=== PATIENT | male | born 1955 | race Caucasian/White ===

== ENCOUNTER 2023-10-26 03:14 | Inpatient (IN) ==
[2023-10-26 04:18] LABS: Appearance Urine Clear (Clear); Bilirubin Urine Negative (Negative); Blood Urine Negative (Negative); Color Urine Yellow; Glucose Urine UA Negative (Negative); Ketones Urine Negative (Negative); Leukocyte Esterase Urine Negative (Negative); Nitrite Urine Negative (Negative); Protein Urine Negative (Negative); Specific Gravity Urine 1.013 (1.000-1.030); Urobilinogen Urine Negative (Negative); pH Urine 5.5 (4.5-7.5)
--- NOTE | 2023-10-26 05:00 | Emergency Department Note ---
Impression & Plan Postobstructive diuresis, Acute retention of urine, Prostatitis ED Provider Note CHIEF COMPLAINT: "can't pee" x 2 days HISTORY OF PRESENT ILLNESS: This 68-year-old male patient presents to the emergency department via private vehicle for evaluation of urinary retention. Patient states the symptoms started 2 days ago. He was seen by urgent care and diagnosed with a urinary tract infection. He was started on Keflex twice daily. He states for the past 2 days, he has only had 1 episode where he had a somewhat decent stream of urine. He has been drinking a lot of fluids and tonight developed some distention and abdominal pain with pain with attempts at urination. The patient denies any blood in the urine. He denies any flank or back pain. He denies any nausea or vomiting. No diarrhea or constipation. No history of similar symptoms or need for a urinary catheter. REVIEW OF SYSTEMS: A 6 system review of systems was performed with positives and pertinent negatives listed in the history of present illness. All other systems were reviewed and are negative. ALLERGIES: NKDA PHYSICAL EXAM: VITALS: Vitals are noted on the nurse's note and reviewed by myself. Vital signs stable. GENERAL: This is a 68 year old male, in no acute distress, nondiaphoretic, well- developed well-nourished. SKIN: The skin was without rashes, erythema, edema, or bruising. There is no tenting of the skin. Capillary refill less than 2 seconds. HEAD: Normocephalic atraumatic. EYES: Conjunctivae without injection, sclerae without icterus. NECK: No lymphadenopathy. HEART: Regular rate and rhythm without murmurs gallops or rubs. LUNGS: Clear to auscultation bilaterally without wheezes, rales or rhonchi. No retractions or accessory muscle use. ABDOMEN: Positive bowel sounds x 4. Distended abdomen with suprapubic tenderness to palpation. Soft, nontender, without masses or organomegaly. No guarding or rebound tenderness. MUSCULOSKELETAL: No muscle atrophy, erythema, or edema noted. Full range of motion without joint tenderness in all extremities. No tenderness to palpation. Normal gait. Strength 5/5 throughout. NEURO: Patient was alert and oriented to person place and time. No focal neurological deficits. EMERGENCY DEPARTMENT COURSE: The patient was seen and evaluated as above. Patient's presentation is concerning for urinary retention for 2 days. He has not had a good void in greater than 48 hours he does have known prostate enlargement. He is on chronic Flomax for this. Bladder scan was completed and concerning for about 1000 cc of fluid within the bladder. Verbal consent was obtained and a Negrete catheter was placed. After placement, this drained approximately 1400 cc of urine. Urinalysis was negative for evidence of bladder infection Initial labs were checked. [id number] creatinine was 1.1. Patient was monitored here in the emergency department for about 2 hours. He did drain almost 600 cc of urine through the Negrete catheter into the bag in about 2 hours. Given this, we were concerned for postobstructive diuresis. Did recommend admission. Patient was updated and agreeable. IV access was obtained, formal labs were drawn. I discussed case with information technology audit manager. I discussed case with the [facility] hospitalist. The patient will be admitted to their service. Please see hospitalist dictation regarding ongoing management care of this patient Case was discussed with the attending physician. I attest that I have personally reviewed the patient medication list. I attest that I have reviewed the patient's blood pressure and it was found to be elevated. Referred to PCP. GCS: 15 In the evaluation and treatment of this patient the following differential diagnoses were entertained: Urinary retention, UTI, prostatitis, nephrolithiasis, malignancy, among others The chart was completed utilizing [employer] Speech voice recognition software. Grammatical errors, random word insertions, pronoun errors, and incomplete sentences are an occasional consequence of this system due to software limitations, ambient noise, and hardware issues. Any formal questions or concerns about the content, text, or information contained within the body of this dictation should be directly addressed to the provider for clarification. Past Med/Surg History Medical History No pertinent past medical history Social History Smoking Status: Never smoker Preferred Language: Georgian Feels Safe at Home: Yes Allergies Allergies Allergy/AdvReac Type Severity Reaction Status Date / Time No Known Allergies Allergy Unverified 07/23/12 06:55 Results & Data (ED) Vital Signs Vital Signs - 24 hr 10/26/23 03:17 10/26/23 07:03 Temperature 36.4 C L Temperature Source Temporal Artery Scan Pulse Rate 94 H Pulse Rate [Finger] 63 Pulse Rhythm Regular Pulse Rhythm [Finger] Regular Pulse Strength Normal Pulse Strength [Finger] Normal Respiratory Rate 18 16 Respiratory Effort / Characteristics Non-Labored Spontaneous Non-Labored Respiratory Depth Normal Normal Respiratory Pattern Regular Regular Blood Pressure 180/93 H Blood Pressure [Left Arm] 187/93 H Blood Pressure Mean 122 Blood Pressure Mean [Left Arm] 124 Blood Pressure Position Sitting Pulse Oximetry 99 98 Oxygen Delivery Method Room Air Room Air Sepsis Recent Fever Within 48 Hours No Sepsis New/Unexplained Change in Mental Status No Sepsis Action Taken by Nursing No Action Required Laboratory Data 10/26/23 05:30 10/26/23 05:30 Lab Results 10/26/23 10/26/23 10/26/23 Range/Units 03:50 05:30 05:48 WBC 6.02 (4.8-10.8) K/ul RBC 4.73 (4.70-6.10) M/uL Hgb 14.1 (14.0-18.0) g/dl POC Hgb 13.9 L (14.0-18.0) g/dl Hct 41.9 L (42.0-52.0) % POC Hct 41 L (42-52) % MCV 88.6 (80.0-100.0) fL MCH 29.8 (25.0-34.0) pg MCHC 33.7 (32.0-36.0) g/dL RDW Std Deviation 42.1 (36.4-46.3) fL RDW Coeff of Brant 12.9 (11.5-14.5) % Plt Count 171 (130-400) K/uL MPV 9.2 L (9.4-12.4) fL Immature Gran % (Auto) 0.5 % Neut % (Auto) 66.0 % Lymph % (Auto) 24.4 % Braxton % (Auto) 7.8 % Eos % (Auto) 0.8 % Baso % (Auto) 0.5 % Neut # (Auto) 3.97 (1.40-6.50) K/uL Lymph # (Auto) 1.47 (1.20-3.40) K/uL Braxton # (Auto) 0.47 (0.11-0.59) K/uL Eos # (Auto) 0.05 (0.00-0.50) K/uL Baso # (Auto) 0.03 (0.00-0.20) K/uL Immature Gran # (Auto) 0.03 (0.01-0.20) K/uL POC Sodium 141 (135-144) mmol/L Sodium 139 (136-145) mmol/L POC Potassium 4.1 (3.3-5.0) mmol/L Potassium 4.1 (3.5-5.1) mmol/L POC Chloride 104 (101-112) mmol/L Chloride 108 H (98-107) mmol/L Carbon Dioxide 28 (21-32) mmol/L POC Total CO2 28 (24-31) mmol/L Anion Gap 3 (3-11) POC Anion Gap 14.0 L (16-25) mmol/L POC BUN 13 (7-18) mg/dl BUN 13 (6-23) mg/dl Creatinine 0.99 (0.6-1.4) mg/dl POC Creatinine 1.1 (0.6-1.3) mg/dl Est Cr Clr Drug Dosing 83.0 ml/min Est GFR ( Amer) 89.1 ml/min Est GFR (Non-Af Amer) 76.8 ml/min BUN/Creatinine Ratio 13.1 (10-20) Glucose 95 (70-99(Fasting)) mg/dl POC Glucose (other) 96 (70-99) mg/dl Calcium 10.2 (8.6-10.3) mg/dl POC Ioniz Calcium Edgar 1.40 H (1.12-1.32) mmol/l Magnesium 1.9 (1.7-2.4) mg/dl Total Bilirubin 0.6 (0.2-1.0) mg/dl AST 14 (13-39) U/L ALT 12 (7-52) U/L Alkaline Phosphatase 59 (34-104) U/L Total Protein 6.4 (6.0-8.3) gm/dl Albumin 4.1 (3.4-5.0) gm/dl Globulin 2.3 L (2.5-4.0) gm/dl Albumin/Globulin Ratio 1.8 (0.9-2) Urine Color Yellow Urine Appearance Clear (Clear) Urine pH 5.5 (4.5-7.5) Ur Specific [place] 1.013 (1.000-1.030) Urine Protein Negative (Negative) Urine Glucose (UA) Negative (Negative) Urine Ketones Negative (Negative) Urine Blood Negative (Negative) Urine Nitrite Negative (Negative) Urine Bilirubin Negative (Negative) Urine Urobilinogen Negative (Negative) Ur Leukocyte Esterase Negative (Negative) 10/26/23 Range/Units 06:07 WBC (4.8-10.8) K/ul RBC (4.70-6.10) M/uL Hgb (14.0-18.0) g/dl POC Hgb 13.6 L (14.0-18.0) g/dl Hct (42.0-52.0) % POC Hct 40 L (42-52) % MCV (80.0-100.0) fL MCH (25.0-34.0) pg MCHC (32.0-36.0) g/dL RDW Std Deviation (36.4-46.3) fL RDW Coeff of Brant (11.5-14.5) % Plt Count (130-400) K/uL MPV (9.4-12.4) fL Immature Gran % (Auto) % Neut % (Auto) % Lymph % (Auto) % Braxton % (Auto) % Eos % (Auto) % Baso % (Auto) % Neut # (Auto) (1.40-6.50) K/uL Lymph # (Auto) (1.20-3.40) K/uL Braxton # (Auto) (0.11-0.59) K/uL Eos # (Auto) (0.00-0.50) K/uL Baso # (Auto) (0.00-0.20) K/uL Immature Gran # (Auto) (0.01-0.20) K/uL POC Sodium 141 (135-144) mmol/L Sodium (136-145) mmol/L POC Potassium 4.1 (3.3-5.0) mmol/L Potassium (3.5-5.1) mmol/L POC Chloride 105 (101-112) mmol/L Chloride (98-107) mmol/L Carbon Dioxide (21-32) mmol/L POC Total CO2 26 (24-31) mmol/L Anion Gap (3-11) POC Anion Gap 16.0 (16-25) mmol/L POC BUN 13 (7-18) mg/dl BUN (6-23) mg/dl Creatinine (0.6-1.4) mg/dl POC Creatinine 1.1 (0.6-1.3) mg/dl Est Cr Clr Drug Dosing ml/min Est GFR ( Amer) ml/min Est GFR (Non-Af Amer) ml/min BUN/Creatinine Ratio (10-20) Glucose (70-99(Fasting)) mg/dl POC Glucose (other) 94 (70-99) mg/dl Calcium (8.6-10.3) mg/dl POC Ioniz Calcium Edgar 1.34 H (1.12-1.32) mmol/l Magnesium (1.7-2.4) mg/dl Total Bilirubin (0.2-1.0) mg/dl AST (13-39) U/L ALT (7-52) U/L Alkaline Phosphatase (34-104) U/L Total Protein (6.0-8.3) gm/dl Albumin (3.4-5.0) gm/dl Globulin (2.5-4.0) gm/dl Albumin/Globulin Ratio (0.9-2) Urine Color Urine Appearance (Clear) Urine pH (4.5-7.5) Ur Specific [place] (1.000-1.030) Urine Protein (Negative) Urine Glucose (UA) (Negative) Urine Ketones (Negative) Urine Blood (Negative) Urine Nitrite (Negative) Urine Bilirubin (Negative) Urine Urobilinogen (Negative) Ur Leukocyte Esterase (Negative) Discharge Plan Visit Data Chief Complaint: Urinary Symptoms Stated Complaint: PROBLEMS URINATING ED Provider: Sadnro Avilez ED Midlevel Provider: Jenn Briones Discharge Problem: Postobstructive diuresis, Acute retention of urine, Prostatitis Patient Disposition: Admitted As Inpatient Condition: Good Forms Stand Alone Forms: My [facility], Important Visit Information Referrals Referrals: Kristin Bush DO [Primary Care Provider] - Salomon Arellano MD [Physician] -
[2023-10-26 06:11] LABS: iSTAT Creatinine 1.1 mg/dl (0.6-1.3); iSTAT Hemoglobin 13.9 g/dl (14.0-18.0); iSTAT Ionized Calcium 1.4 mmol/l (1.12-1.32); iSTAT Potassium 4.1 mmol/L (3.3-5.0)
[2023-10-26 06:26] LABS: iSTAT Creatinine 1.1 mg/dl (0.6-1.3); iSTAT Hemoglobin 13.6 g/dl (14.0-18.0); iSTAT Ionized Calcium 1.34 mmol/l (1.12-1.32); iSTAT Potassium 4.1 mmol/L (3.3-5.0)
[2023-10-26 07:02] LABS: Basophils # (auto) 0.03 K/uL (0.00-0.20); Basophils % (auto) 0.5 %; Eosinophils # (auto) 0.05 K/uL (0.00-0.50); Eosinophils % (auto) 0.8 %; Hematocrit (blood only) 41.9 % (42.0-52.0); Hemoglobin 14.1 g/dl (14.0-18.0); Immature Granulocytes # (auto) 0.03 K/uL (0.01-0.20); Immature Granulocytes % (auto) 0.5 %; Lymphocytes # (auto) 1.47 K/uL (1.20-3.40); Lymphocytes % (auto) 24.4 %; Mean Corpuscular Hemoglobin 29.8 pg (25.0-34.0); Mean Corpuscular Hgb Conc 33.7 g/dL (32.0-36.0); Mean Corpuscular Volume 88.6 fL (80.0-100.0); Mean Platelet Volume 9.2 fL (9.4-12.4); Monocytes # (auto) 0.47 K/uL (0.11-0.59); Monocytes % (auto) 7.8 %; Neutrophils # (auto) 3.97 K/uL (1.40-6.50); Platelet Count 171 K/uL (130-400); RDW Coefficient of Variation 12.9 % (11.5-14.5); RDW Standard Deviation 42.1 fL (36.4-46.3); Red Blood Count 4.73 M/uL (4.70-6.10); White Blood Count 6.02 K/ul (4.8-10.8)
[2023-10-26 07:09] LABS: Albumin Globulin Ratio 1.8 (0.9-2); Albumin Level 4.1 gm/dl (3.4-5.0); BUN Creatinine Ratio 13.1 (10-20); Bilirubin,Total 0.6 mg/dl (0.2-1.0); Calcium 10.2 mg/dl (8.6-10.3); Est GFR (African American) 89.1 ml/min; Est GFR (Non-African American) 76.8 ml/min; Globulin 2.3 gm/dl (2.5-4.0); Magnesium 1.9 mg/dl (1.7-2.4); Potassium 4.1 mmol/L (3.5-5.1); Total Protein 6.4 gm/dl (6.0-8.3)
[2023-10-26] MEDS ORDERED: ALUMINUM/MAGNESIUM SUSP 30 ML UDC PO PRN (09:48)
[2023-10-26] MEDS ORDERED: ACETAMINOPHEN 325 MG TAB PO PRN (09:48)
[2023-10-26] MEDS ORDERED: ONDANSETRON INJ 2 MG/ML 2 ML VIAL IV PRN (09:48)
[2023-10-26] MEDS ORDERED: POLYETHYLENE (MIRALAX) 17 GM PACK PO PRN (09:48)
[2023-10-26] MEDS ORDERED: MELATONIN 3 MG TAB PO PRN (09:48)
[2023-10-26] MEDS: LACTATED RINGER'S 1,000 ML IV SCH (10:00)
[2023-10-26] MEDS ORDERED: cefTRIAXone SODIUM 1,000 MG in DEXTROSE 5 % MINI-B 50 ML IV SCH (12:30)
[2023-10-26] MEDS: cefTRIAXone SODIUM 2,000 MG in DEXTROSE 5 % MINI-B 50 ML IV SCH (13:16)
[2023-10-26] MEDS: PANTOprazole 40 MG TAB PO SCH (13:16)
[2023-10-26] MEDS: ATORVASTATIN 10 MG TAB PO SCH (13:16)
[2023-10-26] MEDS: LOSARTAN POTASSIUM 50 MG TAB PO SCH (13:16)
[2023-10-26] MEDS: CYANOCOBALAMIN (B-12) 500 MCG TABLET PO SCH (13:16)
--- NOTE | 2023-10-26 17:14 | History & Physical Report ---
Date of Service October 26, 2023 Assessment & Plan (1) Postobstructive diuresis: Plan: Hi UOP - 1500 mL from initial madrid placement then 600 mL in subsequent 2h. -IV fluids, monitor I/O and UOP -AM BMP, mag, phos -hopefully can discharge in AM (2) Acute retention of urine: Plan: Due to BPH and possibly partially treated UTI -madrid placed in ED - continue at least 7 days -follow up with his urologist Dr. Cruz -treat for presumptive UTI - ceftriaxone for now -increase flomax to 0.8 mg (3) BPH (benign prostatic hyperplasia): Plan: -increase flomax (4) Hypertension: Plan: Continue irbesartan Plan DVT ppx: SCDs, add chemoprophylaxis if prolonged hospital stay Admission and Anticipated Discharge Date Admission Date: October 26, 2023 History of Present Illness Chief Complaint: inability to urinate, lower abdominal pain Primary Care Provider: Kristin Bush, DO 68 y/o man with history of HTN and BPH on flomax, two previous prostate biopsies negative for cancer. Two days ago developed dysuria, bladder pain, inability to urinate well with dribbling. Seen in urgent care, had urinalysis, started on cephalexin - took three doses. Continued to be unable to urinate and developed severe lower abdominal pain so came to ED. Found to have acute urinary retention and madrid catheter was placed. Made 1500 mL of urine output immediately. Was observed and had 600 mL more UOP in the next two hours. Admitted for postobstructive diuresis. Currently no abdominal pain, pain resolved immediately with madrid. No fever/chills. No pain from madrid. Urine in bag is clear yellow. UA in ED was negative. Baseline symptoms from BPH are weak stream and nocturia 2-3x a night. Has a urologist Dr. Stefan Cruz with [facility] in [place]. No surgical history other than biopsies. No family Hx of prostate cancer. Home medications: atorvastatin 10 mg qd irbesartan 300 mg qd omeprazole 20 mg qd tamsulosin 0.4 mg qd B12 1000 mcg qd D3 2000 u qd keflex recently prescribed as above 500 mg bid Allergies - none, sounds like he had cough with DEVON Allergies Allergy/AdvReac Type Severity Reaction Status Date / Time No Known Allergies Allergy Unverified 07/23/12 06:55 Past Med/Surg History Medical History BPH (benign prostatic hyperplasia) Hypertension No pertinent past medical history Family History Mother Cancer gallbladder cancer Social History Smoking Status: Never smoker Second Hand Exposure: No; Do You Dip or Chew Tobacco: No; Tobacco Cessation Education Requested by Patient: No Hx Alcohol Use: Yes Alcohol type: beer and hard liquor Hx Substance Use: No Preferred Language: Persian Communication Ability: Effective Rehabilitation Services Coordinator Required: No Beliefs That Will Affect Care: None Current Living Situation: Spouse Other Information That Helps Us Care for You: No Feels Safe at Home: Yes Safety Concerns: Feels Safe At This Time Assistive Devices: Denture - Lower, Glasses and Hearing Aid - Left Review of Systems 2 Review of Systems: All systems reviewed & are unremarkable except as noted in HPI & below Physical Exam 2 Physical Exam: PHYSICAL EXAMINATION Last 24h vital signs reviewed, see documentation in flowsheet General: comfortable appearing, no distress HEENT: Normocephalic, atraumatic, pupils round and equal, sclerae anicteric, no conjunctival injection, moist mucus membranes Lungs: Normal respiratory effort. Clear to auscultation bilaterally. No RRW Heart: Regular rate and rhythm, no murmurs. No JVD Abdomen: Soft, nontender, nondistended. Bowel sounds present. : madrid catheter draining clear yellow urine Extremities: Warm, dry, well-perfused. No extremity edema. Neuro: Alert and oriented x 4, face symmetric, moves 4 extremities well Psych: Normal affect and behavior Results & Data Results & Data Vital Signs (Past 12 Hours) Vital Signs Temp Pulse Resp BP Pulse Ox O2 Del Method 10/26/23 15:05 36.6 C 62 16 174/79 H 95 Room Air 10/26/23 09:49 36.4 C L 78 16 165/87 H 95 Room Air 10/26/23 08:35 Room Air 10/26/23 08:30 36.6 C 67 20 168/87 H 97 Room Air 10/26/23 07:03 63 16 187/93 H 98 Room Air Laboratory Results 10/26/23 05:30 10/26/23 05:30 Code Status & VTE Plan VTE Prophylaxis Plan VTE Prophylaxis will be ordered: Yes PG Care Time/CCT Total # of Minutes Spent Total Time Spent with Patient: Total time spent is greater than 50% in coordination of care (as documented) at patient's floor/unit and/or counseling patient: Coding Level of Care Code 63508 INT INP/OBS CARE 2/55MIN Diagnoses Postobstructive diuresis R35.89 Acute retention of urine R33.8 BPH (benign prostatic hyperplasia) N40.0 Hypertension I10
[2023-10-26] MEDS: TAMSULOSIN HCL 0.4 MG CAP PO SCH (19:57)
[2023-10-27 07:47] LABS: BUN Creatinine Ratio 15.1 (10-20); Calcium 10.1 mg/dl (8.6-10.3); Creatinine Clr Calc Pharmacy 88.4 ml/min; Est GFR (African American) 96.1 ml/min; Est GFR (Non-African American) 82.9 ml/min; Magnesium 1.9 mg/dl (1.7-2.4); Phosphorus 2.1 mg/dl (2.5-4.9); Potassium 4.4 mmol/L (3.5-5.1)
[2023-10-27] MEDS: POT PHOSPHATE MONOBASIC W/ SOD TAB PO SCH (12:13)
--- NOTE | 2023-10-27 14:56 | Ultrasound Report ---
RENAL ULTRASOUND CLINICAL HISTORY: BPH, ?hydronephrosis COMPARISON STUDY: None. TECHNIQUE: Sonography of the kidneys and the urinary bladder was performed. FINDINGS: The right kidney measures 11.9 cm in maximal dimension and the left measures 12 cm. There i s no right hydronephrosis. There is apparent moderate dilatation of the left lower pole renal calyces and dilatation of the left renal pelvis. Negrete balloon within the bladder is present. The prostate i s enlarged although suboptimally assessed by sonography. No renal calculus or mass is identified. IMPRESSION: 1. Apparent dilatation of the left lower pole renal calyces and dilatation of the left renal pelvis. This likely reflects mild to moderate left hydronephrosis. Parapelvic cysts could appear similar. 2. No right hydronephrosis. 3. Enlarged prostate. Negrete balloon within the bladder. ACT 112: Negative or not required by law. Electronically signed by: Jean-Claude Chu M.D. 10/27/2023 2:54 PM
[2023-10-27] MEDS: amLODIPine BESYLATE 5 MG TAB PO ONE (16:46)
--- NOTE | 2023-10-27 17:19 | Hospitalist Progress Note ---
Date of Service October 27, 2023 Assessment & Plan (1) Postobstructive diuresis: Plan: Cr stable patient able to match PO intake with UOP Obstruction 2nd to BPH can d/c fluids later today BMP am (2) Acute retention of urine: Plan: 2nd BPH Urine cx from outside urgent care negative, and u/a here completely normal s/p madrid placement leave madrid in place at d/c will sent to [facility] Urology post-d/c for madrid management and trial of void, BPH management, etc renal u/s with unilateral hydronephrosis which is unusual with obstruction from BPH (should be b/l) will obtain CT a/p to get more information on the left-sided hydronephrosis (3) BPH (benign prostatic hyperplasia): Plan: Was taking 0.4mg of flomax daily pre-hospital Was increased to 0.8mg daily at time of admission Consider finasteride, but defer to outpatient providers (4) Hypertension: Plan: Uncontrolled Continue irbesartan Add norvasc 5mg daily Flomax will provide some BP control as well (5) UTI (urinary tract infection): Plan: was told at outside urgent care in [place] he had UTI I don't have his u/a from there but we did call and apparently his urine cx is neg to date u/a here completely normal had taken keflex since Monday 10/23 was switched to rocephin IV here - today is dose #2 can likely d/c all abx unless his urine cx from [facility] is + Plan /daughter updated via [employer] late this afternoon following renal u/s completion and results discussed plan of care await CT a/p and likely d/c home in am change observation status to full admission status Admission and Anticipated Discharge Date Admission Date: October 26, 2023 Subjective pt reports having had a BM earlier today with doing so he got a little hematuria in the madrid bag this cleared as the day went on denies abd pain denies back pain no fevers states he went to [facility] last weekend told he had UTI and placed on keflex follows with [facility] - wants to switch to [facility] prior to this hospitalization was getting up 2-3x's each night to void urinary frequency with small volumes of urine during the daytime poor stream had prostate bx x 2 in the past -- negative per his urologist for prostate ca Review of Systems Review of Systems: gen - no fevers or chills cv - no chest pain pulm - no dyspnea GI - no N/V Physical Exam Physical Exam: gen - NAD, looks well neck - no JVD mouth - MMM heart - RRR, s1 s2, no murmur lungs - CTA b/l abd - soft NT ND BS+ ext - no edema, pulses 2+ b/l - madrid in place; mildly erythematous urine in bag Results & Data Results & Data Vital Signs (Past 12 Hours) Vital Signs Temp Pulse Pulse Resp BP Pulse Ox O2 Del Method 10/27/23 14:54 36.6 C 67 16 171/83 H 96 Room Air 10/27/23 07:27 36.5 C 67 16 167/78 H 96 Room Air Laboratory Results Laboratory Results - last 24 hr 10/27/23 07:11 Sodium 138 Potassium 4.4 Chloride 107 Carbon Dioxide 28 Anion Gap 3 BUN 14 Creatinine 0.93 Est Cr Clr Drug Dosing 88.4 Est GFR ( Amer) 96.1 Est GFR (Non-Af Amer) 82.9 BUN/Creatinine Ratio 15.1 Glucose 96 Calcium 10.1 Phosphorus 2.1 L Magnesium 1.9 Diagnostic Findings verbal report - urine cx result from [place] [facility] from 10/23 - negative / no growth to date PG Care Time/CCT Total # of Minutes Spent Total Time Spent with Patient: Total time spent is greater than 50% in coordination of care (as documented) at patient's floor/unit and/or counseling patient: Coding Level of Care Code 96055 SUB INP/OBS CARE 3/50MIN Diagnoses Postobstructive diuresis R35.89 Acute retention of urine R33.8 BPH (benign prostatic hyperplasia) N40.0 Hypertension I10 UTI (urinary tract infection) N39.0
--- NOTE | 2023-10-27 19:44 | CT Scan Report ---
ABDOMEN AND PELVIS CT WITHOUT CONTRAST CT DOSE: 1429.99 mGy.cm HISTORY: Abnormal renal ultrasound. Possible left-sided hydronephrosis. L sided hydronephrosis; ston es? bladder pathology? TECHNIQUE: Multiaxial CT images of the abdomen and pelvis were performed without contrast. A dose lo wering technique was utilized adhering to the principles of ALARA. COMPARISON STUDY: Renal ultrasound 10/27/2023. FINDINGS: The lung bases are clear. No pneumoperitoneum. No pneumatosis. No acute fractures. A 2.1 cm sclerotic focus within the left side of the L4 vertebral body. This is indeterminate but favors a lemuel ne island. Tiny fat-containing umbilical hernia. Multiple small gallstones. No gallbladder wall thick ening. The unenhanced liver, spleen, adrenal glands, and pancreas are unremarkable. Mildly distended and debris filled stomach. No retroperitoneal lymphadenopathy. Mild calcified plaque within the duane l caliber abdominal aorta. No pelvic lymphadenopathy or pelvic free fluid. The prostate gland is enla rged measuring 7.3 cm. Mild bladder wall thickening favors chronic outlet obstruction from the enlarg ed prostate gland. A Negrete catheter appears in good position and likely accounts for the gas within t he bladder lumen. There is minimal fat stranding adjacent to the bladder. No renal or ureteral stones . Hypodensity within the left renal sinus measuring 3.8 cm. This favors a parapelvic cyst rather than hydronephrosis. However, this is difficult to assess on this noncontrast study. No right-sided hydro nephrosis. Suboptimal evaluation for bowel pathology due to the lack of intravenous and oral contrast . However, there is no definite bowel wall thickening or obstruction. Colonic diverticulosis. No evid ence for acute diverticulitis. Normal appendix. IMPRESSION: 1. Redemonstration of the 3.8 cm hypodense focus within the left renal sinus. This favors a parapelvi c cyst rather than hydronephrosis. However, this is difficult to assess on this noncontrast study. Fo llow-up CT urogram could be considered for confirmation. 2. Bladder wall thickening with adjacent fat stranding. This could be due to chronic outlet obstructi on from the enlarged prostate gland. Follow-up urinalysis recommended to exclude the possibility of a cystitis. 3. No bowel wall thickening or obstruction. 4. Chronic diverticulosis. No evidence for acute diverticulitis. 5. Mildly distended stomach. 6. Cholelithiasis. No gallbladder wall thickening. 7. No renal or ureteral stones. ACT 112: Negative or not required by law. Electronically signed by: Andrez Marin M.D. 10/27/2023 7:42 PM
[2023-10-28] MEDS: amLODIPine BESYLATE 5 MG TAB PO SCH (07:33)
[2023-10-28 09:12] LABS: Est GFR (African American) 81.1 ml/min; Potassium 4.3 mmol/L (3.5-5.1)
[2023-10-28 09:13] LABS: BUN Creatinine Ratio 12.1 (10-20); Calcium 10.5 mg/dl (8.6-10.3); Creatinine Clr Calc Pharmacy 76.8 ml/min
--- NOTE | 2023-10-28 12:22 | Discharge Summary ---
Date of Service date of admission - October 26, 2023 date of discharge - October 28, 2023 Admission HPI Per Admitting Provider 68 y/o man with history of HTN and BPH on flomax, two previous prostate biopsies negative for cancer. Two days ago developed dysuria, bladder pain, inability to urinate well with dribbling. Seen in urgent care, had urinalysis, started on cephalexin - took three doses. Continued to be unable to urinate and developed severe lower abdominal pain so came to ED. Found to have acute urinary retention and madrid catheter was placed. Made 1500 mL of urine output immediately. Was observed and had 600 mL more UOP in the next two hours. Admitted for postobstructive diuresis. Currently no abdominal pain, pain resolved immediately with madrid. No fever/chills. No pain from madrid. Urine in bag is clear yellow. UA in ED was negative. Baseline symptoms from BPH are weak stream and nocturia 2-3x a night. Has a urologist Dr. Stefan Cruz with [facility] in [place]. No surgical history other than biopsies. No family Hx of prostate cancer. Home medications: atorvastatin 10 mg qd irbesartan 300 mg qd omeprazole 20 mg qd tamsulosin 0.4 mg qd B12 1000 mcg qd D3 2000 u qd keflex recently prescribed as above 500 mg bid Allergies - none, sounds like he had cough with DEVON Principal Diagnosis 1. urinary retention due to benign prostatic hypertrophy s/p madrid placement 2. benign prostatic hypertrophy - urology follow-up needed 3. left sided parapelvic renal cyst - urology follow-up needed 4. incidental finding of gallstones 5. chronic diverticulosis 6. high blood pressure 7. mild hypercalcemia likely 2nd to primary hyperparathyroidism Discharge Exam gen - NAD, looks well neck - no JVD mouth - MMM heart - RRR, s1 s2, no murmur lungs - CTA b/l abd - soft NT ND BS+ ext - no edema, pulses 2+ b/l - madrid in place; pink colored urine in bag Discharge Data Allergies Allergy/AdvReac Type Severity Reaction Status Date / Time No Known Allergies Allergy Unverified 07/23/12 06:55 Ordered Studies Renal Ultrasound 10/27/23 10:25 RENAL ULTRASOUND CLINICAL HISTORY: BPH, ?hydronephrosis COMPARISON STUDY: None. TECHNIQUE: Sonography of the kidneys and the urinary bladder was performed. FINDINGS: The right kidney measures 11.9 cm in maximal dimension and the left measures 12 cm. There is no right hydronephrosis. There is apparent moderate dilatation of the left lower pole renal calyces and dilatation of the left renal pelvis. Madrid balloon within the bladder is present. The prostate is enlarged although suboptimally assessed by sonography. No renal calculus or mass is identified. IMPRESSION: 1. Apparent dilatation of the left lower pole renal calyces and dilatation of the left renal pelvis. This likely reflects mild to moderate left hydronephrosis. Parapelvic cysts could appear similar. 2. No right hydronephrosis. 3. Enlarged prostate. Madrid balloon within the bladder. ACT 112: Negative or not required by law. Electronically signed by: Jean-Claude Chu M.D. 10/27/2023 2:54 PM Abdomen/Pelvis CT 10/27/23 17:[address] WITHOUT CONTRAST CT DOSE: 1429.99 mGy.cm HISTORY: Abnormal renal ultrasound. Possible left-sided hydronephrosis. L sided hydronephrosis; stones? bladder pathology? TECHNIQUE: Multiaxial CT images of the abdomen and pelvis were performed without contrast. A dose lowering technique was utilized adhering to the principles of ALARA. COMPARISON STUDY: Renal ultrasound 10/27/2023. FINDINGS: The lung bases are clear. No pneumoperitoneum. No pneumatosis. No acute fractures. A 2.1 cm sclerotic focus within the left side of the L4 vertebral body. This is indeterminate but favors a bone island. Tiny fat- containing umbilical hernia. Multiple small gallstones. No gallbladder wall thickening. The unenhanced liver, spleen, adrenal glands, and pancreas are unremarkable. Mildly distended and debris filled stomach. No retroperitoneal lymphadenopathy. Mild calcified plaque within the normal caliber abdominal aorta. No pelvic lymphadenopathy or pelvic free fluid. The prostate gland is enlarged measuring 7.3 cm. Mild bladder wall thickening favors chronic outlet obstruction from the enlarged prostate gland. A Madrid catheter appears in good position and likely accounts for the gas within the bladder lumen. There is minimal fat stranding adjacent to the bladder. No renal or ureteral stones. Hypodensity within the left renal sinus measuring 3.8 cm. This favors a parapelvic cyst rather than hydronephrosis. However, this is difficult to assess on this noncontrast study. No right-sided hydronephrosis. Suboptimal evaluation for bowel pathology due to the lack of intravenous and oral contrast. However, there is no definite bowel wall thickening or obstruction. Colonic diver ticulosis. No evidence for acute diverticulitis. Normal appendix. IMPRESSION: 1. Redemonstration of the 3.8 cm hypodense focus within the left renal sinus. This favors a parapelvic cyst rather than hydronephrosis. However, this is difficult to assess on this noncontrast study. Follow-up CT urogram could be considered for confirmation. 2. Bladder wall thickening with adjacent fat stranding. This could be due to chronic outlet obstruction from the enlarged prostate gland. Follow-up urinalysis recommended to exclude the possibility of a cystitis. 3. No bowel wall thickening or obstruction. 4. Chronic diverticulosis. No evidence for acute diverticulitis. 5. Mildly distended stomach. 6. Cholelithiasis. No gallbladder wall thickening. 7. No renal or ureteral stones. ACT 112: Negative or not required by law. Electronically signed by: Andrez Marin M.D. 10/27/2023 7:42 PM Hospital Course (1) Acute retention of urine: 2nd BPH s/p madrid placement at time of admission Urine cx from an outside urgent care in [place] was negative u/a here was normal creatinine was stable at 0.9-1 the entire stay he had taken keflex prior to this admission and was continued on antibiotics while here in the event of a falsely negative urine culture he will complete 3 more days of keflex at home renal u/s and CT abd/pelvis were obtained while hospitalized; no hydronephrosis was detected on CT he was sent home with madrid catheter in place he was referred to [facility] post-discharge for BPH & madrid catheter management (2) BPH (benign prostatic hyperplasia): Was taking 0.4mg of flomax daily pre-hospitalization This was increased to 0.8mg daily at time of admission Consider finasteride, but defer to outpatient providers Again he required madrid catheter placement due to urinary retention from the BPH See #1 above (3) Hypertension: Uncontrolled throughout the visit Thus, amlodipine 5mg daily was added to his irbesartan daily Flomax will provide some BP control as well (4) UTI (urinary tract infection): was told at outside urgent care in [place] he had UTI he had taken keflex since Thursday10/24/23 for such while here he received IV rocephin we were ultimately able to secure the urine cx from the urgent care and it was negative again we recommended to finish 3 more days of keflex upon return home as mentioned above (5) Hypercalcemia: Peak total calcium level was 10.5 Phosphorus was mildly low at 2.1 Intact PTH level was elevated at 118 The above values suggest mild primary hyperparathyroidism He will need his calcium level rechecked at time of follow-up Would recommend a 25-OH vitamin D level He was advised to hold any calcium or vitamin D supplements at this time (6) Parapelvic renal cyst: Left-sided Partially seen on renal ultrasound, and was detected on CT abd/pelvis as well Advise follow-up with urology for additional imaging (7) Gallstones: seen incidentally on CT abd/pelvis there were no features of cholecystitis and he had no biliary symptoms while here patient made aware of this finding Total Time Total Time Spent Total Time Spent (In Minutes): 40 Discharge Plan Discharge Items Patient Disposition: Home - Self-Care Reason For Visit: URINARY RETENTION Discharge Diagnosis: 1. urinary retention due to enlarged prostate with need for madrid catheter 2. enlarged prostate (BPH - benign prostatic hypertrophy) 3. left sided kidney cyst 4. incidental finding of gallstones 5. chronic diverticulosis 6. high blood pressure 7. mildly high calcium level - follow-up with family doctor needed Condition on Discharge: Good Activity: As commented below Activity Comment: light activities only; no heavy exertional activity Lifting: No more than 10 pounds Exercise/Sports: Wait until after follow-up appointment Driving/Machine Use: OK to drive but no heavy machinery use Non-emergency contact: Primary Care Provider and Urologist Call non-emergency contact if: you have any medication questions, your symptoms worsen and you have a fever Follow-up/Referrals: Frantz Thurman MD [Physician] - 11/11/23 9:20 am Kristin Bush DO [Primary Care Provider] - 11/03/23 2:00 pm (see your family doctor NEXT week as previously scheduled) Diet: Heart Healthy Addtl Attending Provider Instructions: Mr Short, Chris were hospitalized at [facility] due to urinary retention. Your inability to pass your urine was due to your enlarged prostate, also known as BPH. A madrid catheter was placed in the bladder and you are making copious amounts of urine. Your tamsulosin medication was increased to 0.8mg daily to help shrink your prostate gland. Urine culture from the [place] urgent care ultimately returned negative for urinary tract infection. You underwent kidney ultrasound as well as CT scan of the abdomen/pelvis. The CT scan showed what appears to be a left-sided cyst on the kidney. We did not see any abnormalities of the bladder or ureters. No kidney stones were seen. Incidentally gallstones & diverticular disease were also seen. Neither of these issues are causing problems at this time. Additionally, 2 other issues were addressed/identified - high blood pressure, and mildly high calcium levels in the blood. Amlodipine was added for blood pressure control. Recommendations - 1. cephalexin 500mg twice daily x 3 days only (you may have some antibiotic left over -- again just take 3 days worth; you can discard any left-over pills). Start this later tonight. 2. INCREASE your tamsulosin to 0.8mg (2 x 0.4mg) each day. I have prescribed the higher dose for you. This is for your prostate. 3. blood pressure - please check your blood pressure twice daily upon return home. If your systolic blood pressure is consistently greater than 140 (the "top" number) please START the amlodipine blood pressure pill. This was sent to your pharmacy for you. If you are consistently less than 140 on the top simply HOLD the amlodipine and follow-up with your family doctor. Write your blood pressures down in a notebook and show these to your family doctor. 4. madrid catheter care - see handout. Drain the catheter as necessary. The catheter will remain in place until you see [facility] later this month. 5. please have your family doctor REPEAT your total calcium level at time of follow-up. Your total calcium level is 10.5 on day of discharge (mildly high but not in dangerous range). Cause of the mildly high calcium level is uncertain. I have sent off some additional blood work for this. 6. do not take any keea-yff-odrxxyu vitamin D supplements or calcium supplements at this time (Tums, Oscal, dedicated Vit D supplement, etc). 7. fluid intake - please shoot for a minimum of 2000-2500ml of liquid intake d aily. This includes water, juices, etc. Follow-up - see separate section Return to [facility] if - * you have fever over 100 degrees * you see large amounts of blood in your madrid bag (bright red blood, deep wolfe red, etc) * a small amount of pink colored urine is ok/acceptable * you have large amounts of clots in your catheter tubing or madrid bag * your catheter is not draining * you are experiencing significant lower abdominal pain or bladder pain * any other concerns It was our pleasure to care for you! -Dr Damon Pending Studies at Discharge: No Stand-Alone Forms: My [facility], Work/School Release, Smoking Cessation Medications and DC Order Prescriptions: New tamsulosin 0.4 mg Capsule 0.8 mg PO HS Qty: 60 2RF atorvastatin 10 mg Tablet 10 mg PO QAM Qty: 1 0RF amlodipine [Norvasc] 5 mg Tablet 5 mg PO QAM Qty: 30 2RF omeprazole 20 mg capsule,delayed release(DR/EC) 20 mg PO DAILY Qty: 30 0RF irbesartan 300 mg tablet 300 mg PO DAILY Qty: 30 0RF Discharge Orders: Discharge Order (Routine); Ordered 10/28/23 Ordered By: Shai Mccullough/Other Patient Handouts: Benign Prostatic Hyperplasia, ED Madrid Catheter, Care, ED Urinary Retention, Male Admission Data Admit Date/Time: 10/27/23 17:16 Attending Provider: Shai Damon Admit Provider: Lenore Harris Primary Care Provider: Kristin Bush Other Providers: Lenore Harris Other Interventions: Discharge Summary Assessment (RN) Last Done: 10/28/23 11:16 Coding Level of Care Code 17272 INP/OBS DISCH >30 MIN Diagnoses Acute retention of urine R33.8 BPH (benign prostatic hyperplasia) N40.0 Hypertension I10 UTI (urinary tract infection) N39.0 Hypercalcemia E83.52 Parapelvic renal cyst N28.1 Gallstones K80.20
== END 2023-10-28 15:48 | disposition home or self-care (01) | DRG 726 ==
LOC: ED 03:14 → 3N 03:14 → SUATTDRO 07:51 → 3N 08:35
DX: R35.89 Other polyuria; N13.8 Other obstructive and reflux uropathy; N13.30 Unspecified hydronephrosis; I10 Essential (primary) hypertension; N40.1 Benign prostatic hyperplasia with lower urinary tract symptoms; R35.1 Nocturia; Z79.899 Other long term (current) drug therapy; R33.8 Other retention of urine; R39.12 Poor urinary stream